=== PATIENT | male | born 1985 | race American Indian/Alaskan Native ===

== ENCOUNTER 2018-10-19 11:41 | Emergency (ER) | payer OTHER ==
--- NOTE | 2018-10-19 11:52 | Emergency Department Report ---
Blank Doc - Documentation Documentation: This is a 33-year-old male that presents with GI bleed, weakness, dizzines, and blurry vision. Stated has blood in stool for 2 weeks. Patient stated has a new onset of diabetes but has not taken any medications. This initial assessment/diagnostic orders/clinical plan/treatment(s) is/are subject to change based on patient's health status, clinical progression and re- assessment by fellow clinical providers in the ED. Further treatment and workup at subsequent clinical providers discretion. Patient/guardians urged not to elope from the ED as their condition may be serious if not clinically assessed and managed. Initial orders include: 1- Patient sent to MAIN ED for further evaluation and treatment 2- Labs 3- UA
[2018-10-19 12:13] LABS: Basophils # (Auto) 0.1 K/mm3 (0.0-0.1); Eosinophils # (Auto) 0.2 K/mm3 (0.0-0.4); Eosinophils % (Auto) 3.1 % (0.0-4.3); Monocytes # (Auto) 0.6 K/mm3 (0.0-0.8); Monocytes % (Auto) 8.9 % (0.0-7.3)
[2018-10-19 12:26] LABS: Bilirubin,Urine NEG (Negative); Blood,Urine NEG (Negative); Color,Urine Straw (Yellow); Mucus,Urine FEW /HPF; Protein,Urine <15 mg/dL mg/dL (Negative); RBC,Urine < 1.0 /HPF (0.0-6.0); Urobilinogen,Urine < 2.0 mg/dL (<2.0)
[2018-10-19 12:28] LABS: Blood Urea Nitrogen 18 mg/dL (9-20); Hemolysis Index 380
[2018-10-19 12:29] LABS: WBC,Urine < 1.0 /HPF (0.0-6.0)
[2018-10-19 12:40] LABS: Alanine Aminotransferase 62 units/L (7-56); BUN/Creatinine Ratio 90
[2018-10-19 12:42] LABS: Calcium 8.9 mg/dL (8.4-10.2)
[2018-10-19 12:43] LABS: Albumin 4.1 g/dL (3.9-5)
[2018-10-19 13:42] LABS: Hematocrit 41.3 % (35.5-45.6); Hemoglobin 15.8 gm/dl (11.8-15.2); Lymphocytes % (Auto) 49.4 % (13.4-35.0); Mean Corpuscular HGB Conc 38 % (32-34); Mean Corpuscular Volume 91 fl (84-94); Mean Platelet Volume 11.8 fl (6-12); Platelet Count 250 K/mm3 (140-440); Red Blood Count 4.52 M/mm3 (3.65-5.03); Red Cell Distribution Width 12.4 % (13.2-15.2)
[2018-10-19 13:43] LABS: Lymphocytes # (Auto) 3.5 K/mm3 (1.2-5.4)
[2018-10-19] MEDS ORDERED: NACL 0.9% 1000 ML 1,000 ML IV ONE (14:08)
--- NOTE | 2018-10-19 14:11 | Emergency Department Report ---
ED General Adult HPI - General Chief complaint: Hyperglycemia Stated complaint: MEDICAL CLEARANCE Time Seen by Provider: 10/19/18 11:48 Source: patient Mode of arrival: Ambulatory Limitations: No Limitations - History of Present Illness Initial comments: Patient sent to the emergency department from [facility] for elevated blood glucose levels and blood in stool. Patient states she's had bright red blood in his stool for the last 2 weeks. Patient also complains of increased thirst and urination over the last month with blurred vision as well. Patient's glucose level was greater than 500 at the doctor's office today and thus was sent to the emergency department. Patient denies any chest pain, shortness of breath, or abdominal pain. -: Gradual Severity scale (0 -10): 0 Improves with: none Worsens with: none Associated Symptoms: denies other symptoms Treatments Prior to Arrival: none - Related Data Previous Rx's Medication Instructions Recorded Last Taken Type metFORMIN [Glucophage] 500 mg PO BID #30 tablet 10/19/18 Unknown Rx Allergies Allergy/AdvReac Type Severity Reaction Status Date / Time No Known Allergies Allergy Unverified 10/19/18 11:45 ED Review of Systems ROS: Stated complaint: MEDICAL CLEARANCE Other details as noted in HPI Constitutional: denies: chills, fever Eyes: vision change. denies: eye pain, eye discharge ENT: denies: ear pain, throat pain Respiratory: denies: cough, shortness of breath, wheezing Cardiovascular: denies: chest pain, palpitations Endocrine: no symptoms reported Gastrointestinal: hematochezia. denies: abdominal pain, nausea, diarrhea Genitourinary: denies: urgency, dysuria Musculoskeletal: denies: back pain, joint swelling, arthralgia Skin: denies: rash, lesions Neurological: denies: headache, weakness, paresthesias Psychiatric: denies: anxiety, depression Hematological/Lymphatic: denies: easy bleeding, easy bruising ED Past Medical Hx - Past Medical History Previous Medical History?: No - Surgical History Past Surgical History?: No - Social History Smoking Status: Never Smoker Substance Use Type: None - Medications Home Medications: Home Medications Medication Instructions Recorded Confirmed Last Taken Type metFORMIN [Glucophage] 500 mg PO BID #30 tablet 10/19/18 Unknown Rx ED Physical Exam - General Limitations: No Limitations General appearance: alert, in no apparent distress - Head Head exam: Present: atraumatic, normocephalic - Eye Eye exam: Present: normal appearance, PERRL, EOMI - ENT ENT exam: Present: mucous membranes moist - Neck Neck exam: Present: normal inspection - Respiratory Respiratory exam: Present: normal lung sounds bilaterally. Absent: respiratory distress, wheezes, rales, rhonchi - Cardiovascular Cardiovascular Exam: Present: regular rate, normal rhythm. Absent: systolic murmur, diastolic murmur, rubs, gallop - GI/Abdominal GI/Abdominal exam: Present: soft, normal bowel sounds. Absent: distended, tenderness - Rectal Rectal exam: Present: heme (+) stool, hemorrhoids, other (internal hemorrhoids on exam chaperoned by Nurse Jon Davis M.D.) - Extremities Exam Extremities exam: Present: normal inspection - Back Exam Back exam: Present: normal inspection - Neurological Exam Neurological exam: Present: alert, oriented X3, CN II-XII intact. Absent: motor sensory deficit - Psychiatric Psychiatric exam: Present: normal affect, normal mood - Skin Skin exam: Present: warm, dry, intact, normal color. Absent: rash ED Course Vital Signs 10/19/18 10/19/18 10/19/18 11:50 13:39 13:44 Temperature 98.3 F Pulse Rate 93 H 82 Respiratory 18 15 15 Rate Blood Pressure 147/90 130/84 O2 Sat by Pulse 100 98 98 Oximetry 10/19/18 10/19/18 10/19/18 14:00 14:30 15:00 Temperature Pulse Rate 81 90 84 Respiratory 12 13 14 Rate Blood Pressure 124/81 124/81 123/82 O2 Sat by Pulse 96 96 97 Oximetry ED Medical Decision Making - Lab Data Result diagrams: 10/19/18 11:56 10/19/18 14:29 Lab Results 10/19/18 10/19/18 10/19/18 Range/Units 11:55 11:56 11:56 WBC 7.0 (4.5-11.0) K/mm3 RBC 4.52 (3.65-5.03) M/mm3 Hgb 15.8 H (11.8-15.2) gm/dl Hct 41.3 (35.5-45.6) % MCV 91 (84-94) fl MCH 35 H (28-32) pg MCHC 38 H* (32-34) % RDW 12.4 L (13.2-15.2) % Plt Count 250 (140-440) K/mm3 Lymph % (Auto) 49.4 H (13.4-35.0) % [place] % (Auto) 8.9 H (0.0-7.3) % Eos % (Auto) 3.1 (0.0-4.3) % Baso % (Auto) 1.0 (0.0-1.8) % Lymph # 3.5 (1.2-5.4) K/mm3 [place] # 0.6 (0.0-0.8) K/mm3 Eos # 0.2 (0.0-0.4) K/mm3 Baso # 0.1 (0.0-0.1) K/mm3 Seg Neutrophils % 37.6 L (40.0-70.0) % Seg Neutrophils # 2.6 (1.8-7.7) K/mm3 VBG pH (7.320-7.420) Sodium 122 L (137-145) mmol/L Potassium 5.4 H (3.6-5.0) mmol/L Chloride 83.0 L (98-107) mmol/L Carbon Dioxide 16 L (22-30) mmol/L Anion Gap 28 mmol/L BUN 18 (9-20) mg/dL Creatinine < 0.2 L (0.8-1.5) mg/dL Estimated GFR > 60 ml/min BUN/Creatinine Ratio 90 % Glucose 374 H (75-100) mg/dL POC Glucose 335 H (70-105) Calcium 8.9 (8.4-10.2) mg/dL Total Bilirubin 0.20 (0.1-1.2) mg/dL AST < 5 L (5-40) units/L ALT 62 H (7-56) units/L Alkaline Phosphatase 64 (35-129) units/L Total Creatine Kinase 783 H (55-170) units/L Total Protein 7.6 (6.3-8.2) g/dL Albumin 4.1 (3.9-5) g/dL Albumin/Globulin Ratio 1.2 % Lipase 107 H (13-60) units/L Urine Color (Yellow) Urine Turbidity (Clear) Urine pH (5.0-7.0) Ur Specific [place] (1.003-1.030) Urine Protein (Negative) mg/dL Urine Glucose (UA) (Negative) mg/dL Urine Ketones (Negative) mg/dL Urine Blood (Negative) Urine Nitrite (Negative) Urine Bilirubin (Negative) Urine Urobilinogen (<2.0) mg/dL Ur Leukocyte Esterase (Negative) Urine WBC (Auto) (0.0-6.0) /HPF Urine RBC (Auto) (0.0-6.0) /HPF U Epithel Cells (Auto) (0-13.0) /HPF Urine Mucus /HPF 10/19/18 10/19/18 10/19/18 Range/Units 11:56 14:29 Unknown WBC (4.5-11.0) K/mm3 RBC (3.65-5.03) M/mm3 Hgb (11.8-15.2) gm/dl Hct (35.5-45.6) % MCV (84-94) fl MCH (28-32) pg MCHC (32-34) % RDW (13.2-15.2) % Plt Count (140-440) K/mm3 Lymph % (Auto) (13.4-35.0) % [place] % (Auto) (0.0-7.3) % Eos % (Auto) (0.0-4.3) % Baso % (Auto) (0.0-1.8) % Lymph # (1.2-5.4) K/mm3 [place] # (0.0-0.8) K/mm3 Eos # (0.0-0.4) K/mm3 Baso # (0.0-0.1) K/mm3 Seg Neutrophils % (40.0-70.0) % Seg Neutrophils # (1.8-7.7) K/mm3 VBG pH 7.267 L (7.320-7.420) Sodium (137-145) mmol/L Potassium 5.1 H (3.6-5.0) mmol/L Chloride (98-107) mmol/L Carbon Dioxide (22-30) mmol/L Anion Gap mmol/L BUN (9-20) mg/dL Creatinine (0.8-1.5) mg/dL Estimated GFR ml/min BUN/Creatinine Ratio % Glucose (75-100) mg/dL POC Glucose (70-105) Calcium (8.4-10.2) mg/dL Total Bilirubin (0.1-1.2) mg/dL AST (5-40) units/L ALT (7-56) units/L Alkaline Phosphatase (35-129) units/L Total Creatine Kinase (55-170) units/L Total Protein (6.3-8.2) g/dL Albumin (3.9-5) g/dL Albumin/Globulin Ratio % Lipase (13-60) units/L Urine Color Straw (Yellow) Urine Turbidity Clear (Clear) Urine pH 5.0 (5.0-7.0) Ur Specific [place] 1.029 (1.003-1.030) Urine Protein <15 mg/dl (Negative) mg/dL Urine Glucose (UA) >=500 (Negative) mg/dL Urine Ketones 80 (Negative) mg/dL Urine Blood Neg (Negative) Urine Nitrite Neg (Negative) Urine Bilirubin Neg (Negative) Urine Urobilinogen < 2.0 (<2.0) mg/dL Ur Leukocyte Esterase Neg (Negative) Urine WBC (Auto) < 1.0 (0.0-6.0) /HPF Urine RBC (Auto) < 1.0 (0.0-6.0) /HPF U Epithel Cells (Auto) < 1.0 (0-13.0) /HPF Urine Mucus Few /HPF - Medical Decision Making Discussed results with patient Critical care attestation.: If time is entered above; I have spent that time in minutes in the direct care of this critically ill patient, excluding procedure time. ED Disposition Clinical Impression: Hyperglycemia, Diabetes, Hemorrhoid, GI bleed Disposition: TO HOME OR SELFCARE Is pt being admited?: No Does the pt Need Aspirin: No Condition: Stable Instructions: Diabetes Mellitus Type 2 in Adults (ED), Rectal Bleeding (ED), Hemorrhoids (ED) Additional Instructions: return if worse Prescriptions: metFORMIN [Glucophage] 500 mg PO BID #30 tablet Referrals: CONCHITA SHAHID MD [Primary Care Provider] - 3-5 Days [facility] [Provider Group] - 3-5 Days Time of Disposition: 15:48
[2018-10-19 16:16] VITALS: BP 128/73
== END 2018-10-19 16:16 | disposition home or self-care (01) ==
LOC: ED 11:41
DX: E11.65 Type 2 diabetes mellitus with hyperglycemia (principal); K92.2 Gastrointestinal hemorrhage, unspecified; K64.9 Unspecified hemorrhoids; Z79.84 Long term (current) use of oral hypoglycemic drugs
CPT/HCPCS: 36415; 80053; 81001; 82550; 82805; 82962; 83690; 84132; 85025; 96360; 99283; J7030